=== PATIENT | female | born 1980 ===

== ENCOUNTER 2016-12-04 07:46 | Day surgery (SDC) | payer BC ==
[2016-12-03 11:10] VITALS: BMI 29.8
[2016-12-04] MEDS ORDERED: Lactated Ringer's 1,000 ML IV ONE ×2 (08:18→11:14)
[2016-12-04] MEDS ORDERED: Propofol 10 mg/ml Inj (20 ML) ONE (09:57)
[2016-12-04] MEDS ORDERED: Midazolam 2 MG/2 ML VIAL ONE (09:58)
[2016-12-04] MEDS ORDERED: Neostigmine Methylsulfate 3mg/3ml Syringe IV ONE (09:58)
[2016-12-04] MEDS ORDERED: Succinylcholine 200 mg/10 ml Inj IV ONE (09:58)
[2016-12-04] MEDS ORDERED: Rocuronium 10 mg/ml (5 ml) ONE (09:58)
[2016-12-04] MEDS ORDERED: Labetalol 5mg/ml (4ml) ONE (11:36)
[2016-12-04] MEDS ORDERED: Oxycodone/Acetaminophen 5/325 mg Tab PO PRN (11:49)
[2016-12-04] MEDS ORDERED: Lactated Ringer's 1,000 ML IV SCH (12:04)
[2016-12-04] MEDS: HYDROmorphone 0.5 mg/0.5 ml ISec IVP PRN ×3 (12:06→12:26)
--- NOTE | 2016-12-04 13:04 | OP ---
PROCEDURE DATE: 12/04/2016 PREOPERATIVE DIAGNOSES: Pelvic pain. POSTOPERATIVE DIAGNOSES: Pelvic pain, right ovarian cyst. SURGEON: Castro Ann MD ANALYSIS MANAGER: ANESTHESIA: General, Dr. Hassan. PROCEDURE: Laparoscopy with right ovarian cystectomy. DESCRIPTION OF PROCEDURE: With the patient in the dorsal lithotomy position under general anesthesia , the patient was prepped and draped in usual sterile manner. assisted from the beginning of the surgery and preparation of the surgery. The patient was in dorsal lithotomy position. A Fole y catheter was put into place. The weighted speculum was placed in the posterior vagina. Cervix was grasped anteriorly and the uterus sounded to about 9-10 cm. The HUMI uterine manipulator put into p lace. We then moved to the abdomen where the abdomen was tented and Veress needle introduced inflati ng the abdomen to about 4 liters of CO2. After this was done, a small incision of about 1 cm was mad e below the umbilicus. The scope was then placed into place and sleeve left in place and #10 laparos cope with camera attached was introduced into the abdominopelvic cavity visualizing the cyst on the r ight ovary. The tubes and ovaries on both sides were basically normal. After this was done, a second puncture was done, one 5 mm to the right of midline, and a 10 mm to the left of midline. After the cyst was drained, the capsule was grasped and removed using the LigaSure. Hemostasis was maintained. The pelvic cavity was irrigated until clean. Instruments were removed from the abdominopelvic cavi ty and the pelvic cavity deflated. Following this, the incisions are closed with 0 Vicryl and Dermab ond. The instruments were then removed from the vagina. The patient's blood loss was minimal. The patient tolerated the procedure well and was in satisfactory condition on the way to recovery room. The specimen was sent to pathology. Castro Ann MD cc: 22 TT: 12/04/2016 13:03:18 luther
[2016-12-04 13:59] VITALS: RESP 18
[2016-12-04 14:30] VITALS: O2SAT 100
[2016-12-04 18:12] VITALS: BP 154/108; PULSE 96; TEMP 98.4
== END 2016-12-04 18:45 | disposition still patient (30) ==
LOC: H.OPSURG 07:46
PROVIDERS: ATTEND Specialist
DX: R10.2 Pelvic and perineal pain (principal); N83.291 Other ovarian cyst, right side
CPT/HCPCS: 58662; 87015; 87070; 87116; 87206; 88305; J0330; J0694; J1170; J2001; J2250; J2405; J2704; J2710; J3010; J7030; J7120

== ENCOUNTER 2016-12-04 18:53 | Emergency (ER) | payer BC ==
[2016-12-04 18:55] VITALS: BMI 29.8
[2016-12-04 19:02] VITALS: RESP 16; TEMP 98.7; O2SAT 99
[2016-12-04] MEDS ORDERED: DiphenhydrAMINE 50 mg/ml Inj IVP STA (19:36)
[2016-12-04] MEDS ORDERED: DiphenhydrAMINE 50 mg/ml Inj ONE (19:37)
[2016-12-04] MEDS ORDERED: Sodium Chloride 0.9% 1,000 ML IV STA (19:38)
--- NOTE | 2016-12-04 19:58 | ED PDOC ---
HPI: Hypertension/Hypotension Time Seen by Provider: 12/04/16 19:08 Chief Complaint (Nursing): High Blood Pressure Chief Complaint (Provider): Headache; Lightheadedness History Per: Patient History/Exam Limitations: no limitations Onset/Duration Of Symptoms: Hrs Current Symptoms Are (Timing): Still Present Additional Complaint(s): Genesis Simpson, a 36 year old female, who has just had an ovarian cystectomy , presents to the ED complaining of a Headache and lightheadedness.The patient was sent from same day surgery because of her elevated blood pressure before and after her procedure. The patients states that she was nervous and that her headache is typical of her usual migraines. The patient was given general anesthesia today and tylenol for her headache at 5:30. Past Medical History Reviewed: Historical Data, Nursing Documentation, Vital Signs Vital Signs: Last Vital Signs Temp 98.7 F 12/04/16 18:58 Pulse 102 H 12/04/16 18:58 Resp 16 12/04/16 18:58 BP 137/84 12/04/16 18:58 Pulse Ox 99 12/04/16 18:58 - Medical History PMH: Migraine Denies: Chronic Kidney Disease - Surgical History Other surgeries: Ovarian cystectomy - Family History Family History: States: Unknown Family Hx - Social History Current smoker - smoking cessation education provided: No Alcohol: None - Home Medications Home Medications: Ambulatory Orders Medication Instructions Recorded Acetaminophen with Codeine 1 tab PO Q6H PRN #10 tab 12/04/16 [Tylenol with Codeine No. 3 300 mg-30 mg] oxyCODONE/Acetaminophen [Percocet 1 mg PO Q6 PRN 12/04/16 5/325 mg Tab] - Allergies Allergies/Adverse Reactions: Allergies Allergy/AdvReac Type Severity Reaction Status Date / Time No Known Allergies Allergy Verified 12/04/16 19:48 Review of Systems ROS Statement: Except As Marked, All Systems Reviewed And Found Negative Cardiovascular: Positive for: Light Headedness Neurological: Positive for: Headache Physical Exam - Reviewed Nursing Documentation Reviewed: Yes Vital Signs Reviewed: Yes - Physical Exam Appears: Positive for: Non-toxic, No Acute Distress Head Exam: Positive for: ATRAUMATIC, NORMOCEPHALIC Skin: Positive for: Normal Color, Warm, Dry Eye Exam: Positive for: Normal appearance, EOMI, PERRL ENT: Positive for: Normal ENT Inspection Neck: Positive for: Normal, Painless ROM, Supple Cardiovascular/Chest: Positive for: Regular Rate, Rhythm, Chest Non Tender. Negative for: Tachycardia Respiratory: Positive for: Normal Breath Sounds. Negative for: Wheezing, Respiratory Distress Gastrointestinal/Abdominal: Positive for: Normal Exam, Soft. Negative for: Tenderness Back: Positive for: Normal Inspection. Negative for: L CVA Tenderness, R CVA Tenderness Extremity: Positive for: Normal ROM. Negative for: Tenderness, Deformity, Swelling Neurologic/Psych: Positive for: Alert, Oriented - Laboratory Results Result Diagrams: 12/04/16 19:45 12/04/16 19:45 - ECG O2 Sat by Pulse Oximetry: 99 (RA) Pulse Ox Interpretation: Normal - CT Scan/US CT head Other Rad Studies (CT/US): Radiology Report Reviewed (No acute findings.) Medical Decision Making Medical Decision Makin:08 Initial Impression: 36 year old female presenting with headache and an episode of elevated blood pressure Initial Plan: * CT Head w/o contrast * CMP * CBC * Benadryl 25mg IVP * NS 1000ml IV 1000mls/hr * Phenergan Inj 25mg IVP Patient states she does not want any narcotics for pain. Pt requesting Tylenol #3 instead of Percocet Rx she received from Dr. Correa. Percocet Rx thrown away by publications writer, pt reviewed on [place] [employer] [facility], no past narcotic prescriptions, risk of addiction discussed with patient. Scribe Attestation Documented by Lili Branham acting as a scribe for Abeba Dozier MD. Provider Attestation: All medical record entries made by the Scribe were at my direction and personally dictated by me. I have reviewed the chart and agree that the record accurately reflects my personal performance of the history, physical exam, medical decision making, and the department course for this patient. I have also personally directed, reviewed, and agree with the discharge instructions and disposition. Disposition - Clinical Impression Clinical Impression: Migraine, Episode of hypertension - Disposition Disposition: Routine/Home Disposition Time: 21:41 Condition: IMPROVED Additional Instructions: FOLLOW-UP WITH PMD WITHIN 2 DAYS FOR REEVALUATION. Prescriptions: Acetaminophen with Codeine [Tylenol with Codeine No. 3 300 mg-30 mg] 1 tab PO Q6H PRN #10 tab PRN Reason: Pain, Severe (8-10) Instructions: Migraine Headache (ED), Hypertension (ED)
[2016-12-04 20:02] VITALS: BP 150/91
[2016-12-04 20:46] LABS: BASO % 0.2 % (0.0-2.0); HEMATOCRIT 41.5 % (34.0-47.0); LYMPH # 1.3 K/uL (1.0-4.3); LYMPH % 7.3 % (20.0-40.0); MEAN CELL VOLUME 84.9 fl (81.0-99.0); MEAN CORPUSCULAR HEMOGLOBIN 28.1 pg (27.0-31.0); MEAN CORPUSCULAR HGB CONC 33.1 g/dL (33.0-37.0); MEAN PLATELET VOLUME 9.9 fl (7.2-11.7); MONO # 0.6 K/uL (0.0-0.8); MONO % 3.3 % (0.0-10.0); NEUT # 15.3 K/uL (1.8-7.0); NEUT % 89.2 % (50.0-75.0); PLATELET COUNT 222 K/uL (130-400); RED CELL DISTRIBUTION WIDTH 13.3 % (11.5-14.5); WHITE BLOOD COUNT 17.2 K/uL (4.8-10.8)
[2016-12-04 20:48] VITALS: PULSE 102
[2016-12-04 21:08] LABS: ALB/GLOB RATIO 1.4 (1.0-2.1); ALKALINE PHOSPHATASE 93 U/L (38-126); ALT/SGPT 31 U/L (9-52); AST/SGOT 20 U/L (14-36); BILIRUBIN,TOTAL 0.5 mg/dl (0.2-1.3); BLOOD UREA NITROGEN 7 mg/dl (7-17); CALCIUM 8.9 mg/dL (8.4-10.2); CARBON DIOXIDE 23 mmol/L (22-30); CHLORIDE 102 mmol/L (98-107); GFR AFRICAN-AMERICAN > 60; GLUCOSE,RANDOM 95 mg/dL (65-105); POTASSIUM 3.5 MMOL/L (3.6-5.0); SODIUM 138 mmol/l (132-148); TOTAL PROTEIN 7.6 G/DL (6.3-8.2)
[2016-12-04] MEDS ORDERED: Potassium Chloride 20 mEq ER Tab PO STA (21:24)
[2016-12-04] MEDS ORDERED: Potassium Chloride 20 mEq ER Tab PO ONE (21:43)
[2016-12-04 22:12] LABS: NEUTROPHIL 86 % (42-75); TOTAL CELLS COUNTED 100
--- NOTE | 2016-12-05 09:41 | CT ---
PROCEDURE: CT HEAD WITHOUT CONTRAST. HISTORY: IBRAHIM COMPARISON: None available. TECHNIQUE: Axial computed tomography images were obtained through the head/brain without intravenous contrast. Radiation dose: Total exam DLP = 846.15 mGy-cm. This CT exam was performed using one or more of the following dose reduction techniques: Automated exposure control, adjustment of the mA and/or kV according to patient size, and/or use of iterative reconstruction technique. FINDINGS: HEMORRHAGE: No intracranial hemorrhage. BRAIN: No mass effect or edema. No atrophy or chronic microvascular ischemic changes. VENTRICLES: Unremarkable. No hydrocephalus. CALVARIUM: Unremarkable. PARANASAL SINUSES: Unremarkable as visualized. No significant inflammatory changes. MASTOID AIR CELLS: Unremarkable as visualized. No inflammatory changes. OTHER FINDINGS: None. IMPRESSION: No acute intracranial hemorrhage.
== END 2016-12-04 22:05 | disposition home or self-care (01) ==
LOC: H.ER 18:53
DX: G43.909 Migraine, unspecified, not intractable, without status migrainosus (principal); I10 Essential (primary) hypertension
CPT/HCPCS: 70450; 80053; 85025; 96361; 96374; 96375; 99282; J1200; J2550; J7040